=== PATIENT | female | born 1950 | race Caucasian/White ===

== ENCOUNTER 2016-09-25 17:31 | Emergency (ER) | payer OTHER ==
[~2016-09-25] VITALS: Ht 160 cm; Wt 93.0 kg
[2016-09-25 17:49] VITALS: Ht 160 cm; Wt 93.0 kg
[2016-09-25] MEDS ORDERED: SODIUM CHLORIDE 0.9% 1000ML 1,000 ML IV STA (18:05)
[2016-09-25 18:20] LABS: BASO % 0.6 %; BASO ABS # 0.06 K/uL (0-0.2); COMPLETE YES; EOS % 1.3 %; HEMATOCRIT 41.5 % (37-47); IG% 0.7 %; LYMPH % 26.4 %; LYMPH ABS # 2.83 K/uL (1.2-3.4); MEAN CELL VOLUME 86.5 fL (80-100); MEAN CORPUSCULAR HEMOGLOBIN 29.2 pg (25-34); MEAN CORPUSCULAR HGB CONC 33.7 g/dl (32-36); MONO % 7.4 %; NEUT % 63.6 %; PLATELET COUNT 318 K/uL (130-400); WHITE BLOOD COUNT 10.71 K/uL (4.8-10.8)
--- NOTE | 2016-09-25 18:35 | DIAGNOSTIC IMAGING REPORT ---
ABDOMEN AND PELVIS CT WITHOUT CONTRAST CT DOSE: 1814.72 mGy.cm HISTORY: Flank pain right flank pain TECHNIQUE: Multiaxial CT images of the abdomen and pelvis were performed without the use of intravenous and oral contrast according to the standard department stone protocol. COMPARISON STUDY: None. FINDINGS: The lung bases are clear. The unenhanced liver, gallbladder, spleen, pancreas, and adrenal glands are unremarkable. No renal stones or hydronephrosis. No bowel wall thickening or obstruction. The pelvic organs are unremarkable. No suspicious lytic or blastic osseous lesions. The appendix is absent. IMPRESSION: No renal stones or hydronephrosis. Negative study Electronically signed by: Jaret Davis M.D. 09/25/2016 6:33 PM Dictated Date/Time: 09/25/2016 6:31 PM
[2016-09-25 18:38] LABS: BUN/CREATININE RATIO 19.8 (10-20); CALCIUM 9.4 mg/dl (8.5-10.1); CREATININE 0.81 mg/dl (0.60-1.20); POTASSIUM 4.2 mmol/L (3.5-5.1)
[2016-09-25 18:39] LABS: URINE APPEARANCE CLEAR (CLEAR); URINE BILIRUBIN NEG (NEG); URINE COLOR YELLOW; URINE EPITHELIAL CELL AUTO >30 /lpf (0-5); URINE NITRITE NEG (NEG); URINE PH 5.5 (4.5-7.5); UROBILINOGEN NEG (NEG); ZZUR CULT IF INDIC CLEAN CATCH YES
[2016-09-25 18:40] LABS: ALB/GLOB RATIO 1.1 (0.9-2)
[2016-09-25 18:45] LABS: MANUAL MICROSCOPIC REQUIRED? NO; REVIEW REQ? YES
[2016-09-25] MEDS ORDERED: SYN88 PO (18:50)
[2016-09-25] MEDS ORDERED: SERT50TA PO (18:50)
[2016-09-25] MEDS ORDERED: CLB100 PO (18:50)
[2016-09-25] MEDS ORDERED: SERT-234 PO (18:50)
[2016-09-25] MEDS ORDERED: GABA-112 PO (18:50)
[2016-09-25] MEDS ORDERED: BUSP5TAB59 PO (18:50)
--- NOTE | 2016-09-25 19:22 | DIAGNOSTIC IMAGING REPORT ---
Right upper quadrant ultrasound GALLBLADDER-ABD LIMITED CLINICAL HISTORY: right flank/RUQ pain pain. Nausea. TECHNIQUE: Ultrasound COMPARISON STUDY: None FINDINGS: Normal gallbladder. Common bile duct 6 mm. Mild fatty infiltration of liver. Pancreas and right kidney normal. IMPRESSION: Mild fatty infiltration of liver. Otherwise normal study Electronically signed by: Jaret Davis M.D. 09/25/2016 7:21 PM Dictated Date/Time: 09/25/2016 7:20 PM
[2016-09-25 19:26] VITALS: TEMP 36.4
--- NOTE | 2016-09-25 19:37 | EMERGENCY ROOM VISIT NOTE ---
History First contact with patient: 17:57 Chief Complaint: FLANK PAIN Stated Complaint: PAINS IN RT SIDE-PHYSICIAN REFERRED History of Present Illness The patient is a 66 year old female who presents to the Emergency Room with complaints of right flank pain which began 4 days ago. The patient reports that she initially had intermittent pain after waking up 4 days ago. The pain has worsened throughout the weekend and she states that it became constant today. She did have diarrhea a few days ago, but states this has resolved at this time. The patient rates her discomfort a 9/10 and has not been taking any medications for the pain. She denies any aggravating or alleviating factors. The patient reports that she saw her primary care provider today, who told her they believe she may have a kidney stone and sent her here for evaluation. She denies any nausea, vomiting, fevers, urinary symptoms, vaginal discharge, chest pain, shortness of breath, hematochezia or melena. The patient has a history of a and hysterectomy, but denies any other abdominal surgeries. She denies history of kidney stones or pyelonephritis. Review of Systems A complete 10-point Review of Systems was discussed with the patient, with pertinent positives and negatives listed in the History of Present Illness. All remaining Review of Systems questions can be considered negative unless otherwise specified. Social History Smoking Status: Never Smoker Current/Historical Medications Scheduled Buspirone Hcl (Buspirone Hcl), 5 MG PO TID Celecoxib (Celebrex), 100 CAP PO DAILY Gabapentin (Neurontin), 100 MG PO TID Levothyroxine Sodium (Synthroid), 88 MCG PO QAM Sertraline (Zoloft), 50 MG PO HS Sertraline (Zoloft), 100 MG PO HS Sulfa/Trimethoprim (Bactrim Ds 800MG/160MG), 1 TAB PO BID Allergies Coded Allergies: Statins (Unverified Allergy, Unknown, LEG CRAMPS, 09/25/16) Physical Exam Vital Signs Date Time Temp Pulse Resp B/P Pulse Ox O2 Delivery O2 Flow Rate FiO2 09/25/16 20:43 78 168/84 96 09/25/16 19:26 36.4 70 157/83 96 Room Air 09/25/16 17:49 36.8 70 18 155/80 97 Physical Exam VITALS: Vitals are noted on the nurse's note and reviewed by myself. Vital signs stable. GENERAL: This is a 66-year-old female, in no acute distress, nondiaphoretic, well-developed well-nourished. SKIN: Capillary reflex less than 2 seconds. HEENT: Normocephalic. PERRLA. EOMI. Nares patent. Mucous membranes moist. Neck is supple without nuchal rigidity. HEART: Regular rate and rhythm without murmurs gallops or rubs. LUNGS: Clear to auscultation bilaterally without wheezes, rales or rhonchi. No retractions or accessory muscle use. ABDOMEN: Positive bowel sounds x 4. Soft, nondistended, with mild tenderness to palpation of the right upper quadrant. Krishnamurthy sign negative. No guarding or rebound tenderness. MUSCULOSKELETAL: Moderate right CVA tenderness. NEURO: Patient was alert and oriented to person place and time. Medical Decision & Procedures ER Provider Diagnostic Interpretation: ABDOMEN AND PELVIS CT WITHOUT CONTRAST IMPRESSION: No renal stones or hydronephrosis. Negative study Right upper quadrant ultrasound GALLBLADDER-ABD LIMITED IMPRESSION: Mild fatty infiltration of liver. Otherwise normal study Laboratory Results 09/25/16 18:05 Red Blood Count 4.80, Mean Corpuscular Volume 86.5, Mean Corpuscular Hemoglobin 29.2, Mean Corpuscular Hemoglobin Concent 33.7, Mean Platelet Volume 9.0, Neutrophils (%) (Auto) 63.6, Lymphocytes (%) (Auto) 26.4, Monocytes (%) (Auto) 7.4, Eosinophils (%) (Auto) 1.3, Basophils (%) (Auto) 0.6, Neutrophils # (Auto) 6.82, Lymphocytes # (Auto) 2.83, Monocytes # (Auto) 0.79, Eosinophils # (Auto) 0.14, Basophils # (Auto) 0.06 09/25/16 18:05 Test 09/25/16 18:05 09/25/16 18:12 White Blood Count 10.71 K/uL (4.8-10.8) Red Blood Count 4.80 M/uL (4.2-5.4) Hemoglobin 14.0 g/dL (12.0-16.0) Hematocrit 41.5 % (37-47) Mean Corpuscular Volume 86.5 fL (80-100) Mean Corpuscular Hemoglobin 29.2 pg (25-34) Mean Corpuscular Hemoglobin Concent 33.7 g/dl (32-36) Platelet Count 318 K/uL (130-400) Mean Platelet Volume 9.0 fL (7.4-10.4) Neutrophils (%) (Auto) 63.6 % Lymphocytes (%) (Auto) 26.4 % Monocytes (%) (Auto) 7.4 % Eosinophils (%) (Auto) 1.3 % Basophils (%) (Auto) 0.6 % Neutrophils # (Auto) 6.82 K/uL (1.4-6.5) Lymphocytes # (Auto) 2.83 K/uL (1.2-3.4) Monocytes # (Auto) 0.79 K/uL (0.11-0.59) Eosinophils # (Auto) 0.14 K/uL (0-0.5) Basophils # (Auto) 0.06 K/uL (0-0.2) RDW Standard Deviation 48.2 fL (36.4-46.3) RDW Coefficient of Variation 15.1 % (11.5-14.5) Immature Granulocyte % (Auto) 0.7 % Immature Granulocyte # (Auto) 0.07 K/uL (0.00-0.02) Anion Gap 13.0 mmol/L (3-11) Est Creatinine Clear Calc Drug Dose 75.0 ml/min Estimated GFR () 88.3 Estimated GFR (Non- 76.2 BUN/Creatinine Ratio 19.8 (10-20) Calcium Level 9.4 mg/dl (8.5-10.1) Total Bilirubin 0.3 mg/dl (0.2-1) Aspartate Amino Transf (AST/SGOT) 24 U/L (15-37) Alanine Aminotransferase (ALT/SGPT) 34 U/L (12-78) Alkaline Phosphatase 82 U/L (45-117) Total Protein 7.9 gm/dl (6.4-8.2) Albumin 4.2 gm/dl (3.4-5.0) Globulin 3.7 gm/dl (2.5-4.0) Albumin/Globulin Ratio 1.1 (0.9-2) Lipase 186 U/L (73-393) Urine Color YELLOW Urine Appearance CLEAR (CLEAR) Urine pH 5.5 (4.5-7.5) Urine Specific [place] 1.010 (1.000-1.030) Urine Protein NEG (NEG) Urine Glucose (UA) NEG (NEG) Urine Ketones NEG (NEG) Urine Occult Blood NEG (NEG) Urine Nitrite NEG (NEG) Urine Bilirubin NEG (NEG) Urine Urobilinogen NEG (NEG) Urine Leukocyte Esterase MODERATE (NEG) Urine WBC (Auto) >30 /hpf (0-5) Urine RBC (Auto) 0-4 /hpf (0-4) Urine Hyaline Casts (Auto) 1-5 /lpf (0-5) Urine Epithelial Cells (Auto) >30 /lpf (0-5) Urine Bacteria (Auto) 2+ (NEG) Medications Administered Medications (Trade) Dose Ordered Sig/Lillian Route Start Time Stop Time Status Last Admin Dose Admin Sodium Chloride (Nss 1000ml) 1,000 ml @ 999 mls/hr Q1H1M STAT IV 09/25/16 18:05 09/25/16 19:05 DC 09/25/16 18:05 999 MLS/HR Trimethoprim/ Sulfamethoxazole (Septra Ds 800/ 160MG Tab) 1 tab NOW STAT PO 09/25/16 20:04 09/25/16 20:06 DC 09/25/16 20:33 1 TAB Medical Decision Differential diagnosis includes pyelonephritis, renal calculus, cholecystitis, pancreatitis, gastroenteritis, colitis, appendicitis, bowel obstruction, among others. The patient was evaluated as above. Labs were drawn and IV access was obtained. Imaging studies were performed and read by radiology as above. The patient was medicated with 1 L normal saline solution. She declined analgesics. The patient was reassessed multiple times during their stay in the emergency department and remained in stable condition. The patient is a 66-year-old female who presents today complaining of right flank pain. Labs revealed no leukocytosis, anemia or concerning electrolyte abnormalities. CT of the abdomen and pelvis was performed and showed no evidence of renal calculus or other acute finding. Gallbladder ultrasound was also performed and showed no biliary disease. Urinalysis was suggestive of infection versus contamination. Given the patient's presentation, I did choose to treat her empirically for a possible urinary tract infection pending the culture results. She was placed on Bactrim. She was instructed to follow closely with her primary care provider or return here for worsening symptoms. Based on the patient's presentation, lab results, and imaging studies, I feel the patient is stable for outpatient treatment. Discharge instructions were reviewed with the patient. The patient's case was reviewed with Dr. Mckeon, ED attending physician, who agreed with my assessment and treatment plan. The patient verbalized understanding of my assessment and treatment plan and was discharged home in good condition. Impression Primary Impression: Right flank pain Departure Information Dispostion Home / Self-Care Condition GOOD Prescriptions Sulfa/Trimethoprim (Bactrim Ds 800MG/160MG) Tab 1 TAB PO BID for 10 Days, #20 TAB Prov: Leonor Parrish PA-C 09/25/16 Referrals Arturo Larios PA-C (PCP) Patient Instructions My [facility] Additional Instructions You were seen in the emergency department for your back pain. Your urine test was suggestive of infection and you will be covered with an antibiotic pending your urine culture results. You were prescribed Bactrim to be taken twice daily. This is an antibiotic. All antibiotics have the potential to cause diarrhea. Stop this medication and contact a medical provider if you were to develop any significant adverse side effects including: wheezing, shortness of breath, passing out, vomiting, or a diffuse rash. Always take antibiotics as directed and COMPLETE the ENTIRE course regardless of the improvement of your symptoms. For pain control, you can use the following [id number] medicines (if >12 yo): - Regular strength (325mg/tab) Tylenol (acetaminophen) 2 tabs every 4-6 hours as needed. Do not exceed 12 tablets in a 24 hour period. Avoid taking more than 4 grams (4000 mg) of Tylenol per day. This includes any other sources of acetaminophen you may take on a regular basis. - Regular strength (200 mg/tab) Advil (ibuprofen) 1-2 tabs every 4-6 hours as needed. Do not exceed a dose of 3200 mg per day. Follow-up with your primary care provider within 2-3 days for further evaluation of your pain. Return to the emergency department with worsening pain, vomiting, fevers or any other new/concerning symptoms.
[2016-09-25] MEDS ORDERED: SULFAMETHOXAZOLE/TRIMETHOPRIM DS 800/160MG TAB PO STA (20:04)
[2016-09-25] MEDS ORDERED: SULF800T23 PO ×2 (20:07→20:59)
[2016-09-25 20:43] VITALS: BP 168/84; PULSE 78; O2SAT 96
== END 2016-09-25 20:43 | disposition home or self-care (01) ==
LOC: C.EDB 17:32 → C.EDC 20:43
DX: R10.9 Unspecified abdominal pain (principal); Z90.710 Acquired absence of both cervix and uterus; Z98.891 History of uterine scar from previous surgery